=== PATIENT | male | born 1945 | race Caucasian/White ===

== ENCOUNTER 2017-08-24 21:39 | Emergency (ER) | payer MEDICARE ==
[2017-08-24] MEDS ORDERED: Zofran 4 MG/2 ML VIAL IV ONE (21:58)
[2017-08-24] MEDS ORDERED: MORPHINE SULFATE 4 MG INJ IV ONE ×2 (21:58→23:55)
[2017-08-24] MEDS ORDERED: MORPHINE SULFATE 4 MG INJ ONE ×2 (22:07→23:57)
[2017-08-24] MEDS ORDERED: Zofran 4 MG/2 ML VIAL ONE (22:07)
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
[2017-08-24 22:11] LABS: Lactic Acid 2.7 (0.4-2.0)
[2017-08-24 22:13] LABS: BASOPHIL % 0.3 % (0.0-0.4); Basophil (Absolute #) 0.03 (0-0.4); Eosinophil % 3.8 % (0.00-5.0); Eosinophil (Absolute #) 0.33 (0-0.5); Granulocyte Absolute (ANC) 3.81 (1.4-6.9); Granulocytes % 43.8 % (36.0-66.0); Hematocrit 41.7 % (42-50); Hemoglobin 14.4 gm/dl (12.5-18.0); Lymphocyte (Absolute #) 3.17 (1.0-4.6); Lymphocytes % 36.4 % (24.0-44.0); Mean Cell Volume 97.4 fl (78-100); Mean Corpuscular Hemoglobin 33.6 pg (26-32); Mean Corpuscular Hgb Concent. 34.5 g/dl (32-36); Mean Platelet Volume 10.2 fl (6-9.5); Monocyte (Absolute #) 1.37 (0.0-1.3); Monocytes % 15.7 % (0.0-12.0); Platelet Count 189 K/mm3 (150-450); Red Blood Count 4.28 M/mm3 (4.1-5.6); Red Cell Distribution Width 12.8 % (11.5-14.0); White Blood Count 8.7 K/mm3 (4.0-10.5)
[2017-08-24 22:31] LABS: INR 1.01 (0.8-3.0)
[2017-08-24 22:33] LABS: PTT 26.5 SECONDS (24.1-36.1)
[2017-08-24 22:40] LABS: ALKALINE PHOSPHATASE 62 U/L (46-116); ANION GAP 16.6 MEQ/L (5-15); BLOOD UREA NITROGEN 25 mg/dL (9-20); CHLORIDE 101 mEq/L (98-107); CK-Creatinine Phosphokinase 167 U/L (39-308); Calcium 9.5 mg/dL (8.5-10.1); Carbon Dioxide 26.6 mEq/L (21-32); Creatinine 1 1.11 mg/dl (0.55-1.30); EST GLOMERULAR FILTRATION RATE > 60 ML/MIN; Glucose 140 MG/DL (70-110); Potassium 3.8 mEq/L (3.5-5.1); SGOT/AST 26 U/L (15-37); SGPT/ALT 40 U/L (12-78); SODIUM 140 mEq/L (136-145); Total Protein 7.6 gm/dL (6.4-8.2)
[2017-08-24] MEDS ORDERED: Sodium Chloride 0.9% 1000 ML 1,000 ML IV SCH (22:45)
[2017-08-24] MEDS ORDERED: Sodium Chloride 0.9% 1000 ML 1,000 ML ONE (22:48)
[2017-08-25] MEDS ORDERED: CITROMA 296 ML PO ONE (00:19)
[2017-08-25] MEDS ORDERED: CITROMA 296 ML ONE (00:43)
[2017-08-25 01:15] LABS: Lactic Acid 2.6 (0.4-2.0)
[2017-08-25] MEDS ORDERED: Sodium Chloride 0.9% 1000 ML 1,000 ML IV STA (01:40)
[2017-08-25 01:45] VITALS: BP 129/78; PULSE 61
[2017-08-25] MEDS ORDERED: Sodium Chloride 0.9% 1000 ML 1,000 ML ONE (01:46)
[2017-08-25 01:55] VITALS: O2SAT 97
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
== END 2017-08-25 03:00 | disposition home or self-care (01) ==
LOC: ED 21:39
DX: I70.1 Atherosclerosis of renal artery (principal); K59.00 Constipation, unspecified; R10.12 Left upper quadrant pain; R10.32 Left lower quadrant pain; R42 Dizziness and giddiness; R11.0 Nausea; Z79.899 Other long term (current) drug therapy
CPT/HCPCS: 36000; 36415; 74174; 80053; 82550; 83605; 84484; 85025; 85610; 85730; 93005; 93041; 96360; 96361; 96374; 96375; 99284; J2270; J2405; A9270-GY

== ENCOUNTER 2022-01-22 17:43 | Emergency (ER) | payer MEDICARE, OTHER ==
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
[2022-01-22 18:52] LABS: Absolute Neutrophil Ct (ANC) 3.44 x10^3/uL (1.4-6.9); Basophil (Absolute #) 0.03 x10^3/uL (0-0.4); Eosinophil (Absolute #) 0 x10^3/uL (0-0.5); Hematocrit 38.9 % (42-50); Hemoglobin 13.7 g/dL (12.5-18.0); Lymphocyte (Absolute #) 1.17 x10^3/uL (1.0-4.6); Lymphocytes % 21.7 % (24.0-44.0); Mean Cell Volume 95.8 fL (78-100); Mean Corpuscular Hemoglobin 33.7 pg (26-32); Mean Corpuscular Hgb Concent. 35.2 g/dL (32-36); Monocyte (Absolute #) 0.72 x10^3/uL (0.0-1.3); Monocytes % 13.4 % (0.0-12.0); Neutrophil % 63.7 % (36.0-66.0); Platelet Count 150 x10^3/uL (150-450); Red Blood Count 4.06 x10^6/uL (4.1-5.6); Red Cell Distribution Width 12.7 % (11.5-14.0); White Blood Count 5.4 x10^3/uL (4.0-10.5)
[2022-01-22 19:13] LABS: ALBUMIN 4.1 g/dL (3.5-5.0); ALKALINE PHOSPHATASE 92 U/L (38-126); ANION GAP 14.5 MEQ/L (5-15); BLOOD UREA NITROGEN 24 mg/dL (9-20); CHLORIDE 99 mmol/L (98-107); Calcium 9.5 mg/dL (8.4-10.2); Carbon Dioxide 23 mmol/L (22-30); Creatinine 1 1.04 mg/dL (0.66-1.25); EST GLOMERULAR FILTRATION RATE > 60.0 ML/MIN; Glucose 152 mg/dL (74-106); NT PRO BNP 68.8 pg/mL (0-900); SGOT/AST 39 U/L (17-59); SGPT/ALT 46 U/L (0-50); SODIUM 132 mmol/L (137-145); Total Protein 7.6 g/dL (6.3-8.2)
[2022-01-22] MEDS ORDERED: Sodium Chloride 0.9% 500 ML 500 ML IV ONE ×2 (19:36)
[2022-01-22 20:08] VITALS: BP 128/76
[2022-01-22 21:38] VITALS: PULSE 58; O2SAT 95
--- NOTE | 2022-01-23 11:45 | XRAY ---
Exam: CT of the chest with IV contrast per PE protocol from 01/22/2022. CTDI: 23.68 mGy Comparison: [None.] Indication: 76-year-old male with elevated d-dimer of 0.94, and weakness/shortness of breath. Technique: Post-IV contrast axial images were obtained through the chest during automated injection of 100 cc of Isovue-370 contrast material, per PE protocol. Reconstructed coronal and sagittal images were created and reviewed. Findings: Main pulmonary artery trunk, right and left main pulmonary arteries, and lobar and segmental pulmonary arteries enhance well and reveal no filling defects to suggest clot/emboli. Some atherosclerotic vascular calcification is seen within the aortic arch and descending thoracic aorta. No thoracic aortic aneurysm or dissection is seen. The heart size is normal without pericardial effusion. There appears to be moderate coronary artery vascular calcification. I see no abnormal mediastinal mass or lymphadenopathy. The peripheral lungs reveal a few scattered bilateral calcified granulomas. No air space infiltrates or significant interstitial lung changes are seen. No pneumothorax or pleural effusion is seen. No abnormal soft tissue lung nodularity is evident. There is a suggestion of mild fatty infiltration of the liver. The adrenal glands appear unremarkable. The remainder of the upper abdomen reveals no significant abnormality. The skeleton reveals advanced degenerative changes throughout the visualized spine. There is mild retrolisthesis of L1 with respect to L2 which is probably due to a combination of moderate degenerative disc disease at L1-L2 and posterior facet joint arthropathy. Impression: 1. No evidence of pulmonary embolus is seen. Nor do I see thoracic aortic dissection. 2. Fairly extensive coronary artery vascular calcification is seen. 3. No active lung disease is seen. 4. Mild old healed granulomatous disease, advanced degenerative changes within the visualized thoracolumbar spine, and probable mild hepatic steatosis are seen.
== END 2022-01-22 21:56 | disposition home or self-care (01) ==
LOC: ED 17:43
DX: R53.1 Weakness (principal); I10 Essential (primary) hypertension; E78.5 Hyperlipidemia, unspecified; E11.9 Type 2 diabetes mellitus without complications; Z79.84 Long term (current) use of oral hypoglycemic drugs; Z79.899 Other long term (current) drug therapy
CPT/HCPCS: 36000; 36415; 71260; 80053; 83880; 84436; 84443; 84484; 85025; 85379; 93005; 93041; 94760; 96360; 99284

== ENCOUNTER 2022-11-27 07:49 | Emergency (ER) | payer OTHER ==
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
[2022-11-27] MEDS ORDERED: BABY ASPIRIN 81 MG CHEW PO ONE (07:56)
[2022-11-27 08:26] LABS: Absolute Neutrophil Ct (ANC) 8.24 x10^3/uL (1.4-6.9); BASOPHIL % 0.6 % (0.0-0.4); Basophil (Absolute #) 0.07 x10^3/uL (0-0.4); Eosinophil % 0.1 % (0.00-5.0); Eosinophil (Absolute #) 0.01 x10^3/uL (0-0.5); Hematocrit 42.7 % (42-50); Hemoglobin 14.2 g/dL (12.5-18.0); IMMATURE GRAN # 0.05 x10^3u/L (0.00-0.03); IMMATURE GRAN % 0.4 % (0.00-0.4); Lymphocyte (Absolute #) 1.48 x10^3/uL (1.0-4.6); Mean Cell Volume 99.1 fL (78-100); Mean Corpuscular Hemoglobin 32.9 pg (26-32); Mean Corpuscular Hgb Concent. 33.3 g/dL (32-36); Mean Platelet Volume 10.2 fL (7.5-11.0); Monocyte (Absolute #) 1.54 x10^3/uL (0.0-1.3); Monocytes % 13.5 % (0.0-12.0); Neutrophil % 72.4 % (36.0-66.0); Platelet Count 191 x10^3/uL (150-450); Red Blood Count 4.31 x10^6/uL (4.1-5.6); Red Cell Distribution Width 13.2 % (11.5-14.0); White Blood Count 11.4 x10^3/uL (4.0-10.5)
--- NOTE | 2022-11-27 08:31 | XRAY ---
Indication: Chest pain. Comparison: None Portable apical lordotic slightly underinflated and clear with a few incidental tiny calcified granulomas. Heart not enlarged. Bony thorax intact with osteopenia and mild degenerative changes. Impression: Nonacute chest with chronic features.
[2022-11-27 08:58] LABS: ALBUMIN 4.5 g/dL (3.5-5.0); ALKALINE PHOSPHATASE 98 U/L (38-126); ANION GAP 18.9 MEQ/L (5-15); BLOOD UREA NITROGEN 30 mg/dL (9-20); CHLORIDE 101 mmol/L (98-107); Calcium 9.6 mg/dL (8.4-10.2); Carbon Dioxide 22 mmol/L (22-30); Creatinine 1 1.09 mg/dL (0.66-1.25); EST GLOMERULAR FILTRATION RATE > 60.0 ML/MIN; Glucose 211 mg/dL (74-106); Potassium 3.9 mmol/L (3.5-5.1); SGOT/AST 22 U/L (17-59); SGPT/ALT 19 U/L (0-50); SODIUM 138 mmol/L (137-145); Total Protein 8.5 g/dL (6.3-8.2)
[2022-11-27] MEDS ORDERED: Sodium Chloride 0.9% 500 ML 500 ML IV ONE ×2 (09:28→09:37)
[2022-11-27 09:52] LABS: Slide Review 1 YES
[2022-11-27 10:06] VITALS: BP 145/84; PULSE 63; O2SAT 95
--- NOTE | 2022-11-27 10:15 | XRAY ---
Indication: Left chest pain. Elevated d-dimer. Multiple contiguous axial images obtained through the chest using 80 cc Isovue 370 contrast and PE protocol. Comparison: January 22, 2022 Good opacification of the pulmonary arteries to include the lobar and segmental branches. No pulmonary embolus. Heart not enlarged again with scattered coronary calcifications. Aorta remains mildly arteriosclerotic without aneurysm/dissection. No pathologic mediastinal/hilar lymphadenopathy. Lungs demonstrates minimal bilateral dependent atelectasis left lower lobe demonstrates stable tiny calcified and noncalcified granulomas. No suspicious pulmonary mass/nodule, infiltrate, effusion, or pneumothorax. Bony thorax intact again with mild/moderate degenerative changes throughout the spine. Limited upper abdomen including adrenal glands are unremarkable. Impression: Continued negative pulmonary embolus. Again chronic findings including arteriosclerotic disease, multilevel degenerative spondylosis, and old granulomatous disease. No new/acute abnormalities.
== END 2022-11-27 10:58 | disposition home or self-care (01) ==
LOC: ED 07:49
DX: R07.81 Pleurodynia (principal); I10 Essential (primary) hypertension; E11.9 Type 2 diabetes mellitus without complications; Z79.84 Long term (current) use of oral hypoglycemic drugs; Z79.52 Long term (current) use of systemic steroids; Z79.899 Other long term (current) drug therapy; Z28.310 Unvaccinated for COVID-19
CPT/HCPCS: 36415; 71045; 71260; 80053; 83880; 84484; 85025; 85379; 93005; 93041; 94760; 99284; A9270-GY

== ENCOUNTER 2023-04-24 13:09 | Emergency (ER) | payer OTHER ==
[2023-04-24] MEDS ORDERED: Sodium Chloride 0.9% 1000 ML 1,000 ML IV STA ×2 (13:18→14:55)
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
[2023-04-24] MEDS ORDERED: Sodium Chloride 0.9% 1000 ML 1,000 ML ONE ×2 (13:28→15:05)
[2023-04-24 13:29] VITALS: TEMP 97.8
[2023-04-24 13:58] LABS: Absolute Neutrophil Ct (ANC) 19.53 x10^3/uL (1.4-6.9); BASOPHIL % 0.3 % (0.0-0.4); Basophil (Absolute #) 0.06 x10^3/uL (0-0.4); Eosinophil % 0.6 % (0.00-5.0); Eosinophil (Absolute #) 0.13 x10^3/uL (0-0.5); Hematocrit 41.2 % (42-50); Hemoglobin 13.6 g/dL (12.5-18.0); IMMATURE GRAN # 0.19 x10^3u/L (0.00-0.03); IMMATURE GRAN % 0.9 % (0.00-0.4); Lymphocyte (Absolute #) 0.69 x10^3/uL (1.0-4.6); Lymphocytes % 3.2 % (24.0-44.0); Mean Cell Volume 98.1 fL (78-100); Mean Corpuscular Hemoglobin 32.4 pg (26-32); Mean Platelet Volume 9.9 fL (7.5-11.0); Monocyte (Absolute #) 1.25 x10^3/uL (0.0-1.3); Monocytes % 5.7 % (0.0-12.0); Neutrophil % 89.3 % (36.0-66.0); Platelet Count 245 x10^3/uL (150-450); Red Cell Distribution Width 13.3 % (11.5-14.0); White Blood Count 21.9 x10^3/uL (4.0-10.5)
[2023-04-24 14:09] LABS: BILIRUBIN,TOTAL 0.3 mg/dL (0.2-1.3); Calcium 9.3 mg/dL (8.4-10.2); Creatinine 1 1.43 mg/dL (0.66-1.25); EST GLOMERULAR FILTRATION RATE 51.1 ML/MIN; Potassium 4.4 mmol/L (3.5-5.1)
[2023-04-24 14:10] LABS: ADD URINE CULTURE? NO (NO); Appearance Clear (Clear); Bacteria None Seen /HPF (None Seen); Bilirubin Negative (Negative); Blood Negative (Negative); Epithelial Cells None Seen /HPF (None Seen); Glucose, Urine >=1000 mg/dL (Negative); Hyaline Casts NONE SEEN /LPF (0-2); Ketones Negative (Negative); Leukocyte Esterase Negative (Negative); Nitrite Negative (Negative); Ph 5.5 (4.6-8.0); Protein,Urine Dip Negative (Negative); RBC 0-2 /HPF (0-5); Specific Gravity >=1.030 (1.005-1.030); Urobilinogen 0.2 mg/dL (0.2); WBC 0-2 /HPF (0-5)
[2023-04-24 14:33] LABS: T4 (Thyroxine) 4.69 ug/dL (5.53-10.96)
[2023-04-24] MEDS ORDERED: Levofloxacin 500MG/100ML D5W 500 MG/100 ML BAG IV STA (14:35)
[2023-04-24] MEDS ORDERED: solu-MEDROL 125 MG, Sterile H2O 10 ml 2 ML IV ONE ×2 (14:36)
[2023-04-24] MEDS ORDERED: Levofloxacin 500MG/100ML D5W 500 MG/100 ML BAG IV ONE (14:41)
[2023-04-24] MEDS ORDERED: Sterile H2O 10 ml IJ ONE (14:41)
[2023-04-24] MEDS ORDERED: solu-MEDROL ONE (14:41)
--- NOTE | 2023-04-24 15:09 | XRAY ---
Indication: Leukocytosis. Comparison: November 27, 2022 Portable apical lordotic chest again demonstrates normal heart and lungs. Bony thorax intact. No new/acute findings.
[2023-04-24] MEDS ORDERED: Hydromorphone 1 mg/ml Injection IV ONE (16:09)
[2023-04-24] MEDS ORDERED: Zofran 4 MG/2 ML VIAL IV ONE (16:09)
[2023-04-24] MEDS ORDERED: NORCO 5/325 MG PO ONE (16:10)
[2023-04-24] MEDS ORDERED: Zofran 4 MG/2 ML VIAL ONE (16:13)
[2023-04-24] MEDS ORDERED: Hydromorphone 1 mg/ml Injection ONE (16:14)
[2023-04-24] MEDS ORDERED: NORCO 5/325 MG ONE (16:14)
[2023-04-24 16:37] VITALS: BP 99/73; PULSE 55; RESP 17; O2SAT 90
== END 2023-04-24 16:42 | disposition home or self-care (01) ==
LOC: ED 13:09
DX: D72.829 Elevated white blood cell count, unspecified (principal); M79.18 Myalgia, other site; R53.1 Weakness; I10 Essential (primary) hypertension; E11.9 Type 2 diabetes mellitus without complications; Z79.84 Long term (current) use of oral hypoglycemic drugs; Z79.899 Other long term (current) drug therapy; Z28.310 Unvaccinated for COVID-19
CPT/HCPCS: 36000; 36415; 71045; 80053; 81001; 83605; 83880; 84436; 84443; 84484; 85025; 85652; 86308; 87040; 93005; 93041; 94760; 96360; 96365; 96374; 96375; 99285; J1170; J1956; J2405; J2930; A9270-GY

== ENCOUNTER 2023-04-25 08:10 | Emergency (ER) | payer OTHER ==
[2023-04-25 08:19] VITALS: TEMP 96.8
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
[2023-04-25 09:02] LABS: Absolute Neutrophil Ct (ANC) 21.63 x10^3/uL (1.4-6.9); BASOPHIL % 0.1 % (0.0-0.4); Basophil (Absolute #) 0.02 x10^3/uL (0-0.4); Eosinophil (Absolute #) 0 x10^3/uL (0-0.5); Hematocrit 39.1 % (42-50); Hemoglobin 12.9 g/dL (12.5-18.0); IMMATURE GRAN # 0.29 x10^3u/L (0.00-0.03); IMMATURE GRAN % 1.2 % (0.00-0.4); Lymphocyte (Absolute #) 0.65 x10^3/uL (1.0-4.6); Lymphocytes % 2.8 % (24.0-44.0); Mean Cell Volume 98.7 fL (78-100); Mean Corpuscular Hemoglobin 32.6 pg (26-32); Mean Platelet Volume 9.8 fL (7.5-11.0); Monocyte (Absolute #) 0.69 x10^3/uL (0.0-1.3); Neutrophil % 92.9 % (36.0-66.0); Platelet Count 239 x10^3/uL (150-450); Red Blood Count 3.96 x10^6/uL (4.1-5.6); Red Cell Distribution Width 13.3 % (11.5-14.0); White Blood Count 23.3 x10^3/uL (4.0-10.5)
[2023-04-25 09:13] LABS: ALBUMIN 3.8 g/dL (3.5-5.0); ANION GAP 17.9 MEQ/L (5-15); BILIRUBIN,TOTAL 0.2 mg/dL (0.2-1.3); Calcium 9.4 mg/dL (8.4-10.2); Creatinine 1 1.44 mg/dL (0.66-1.25); EST GLOMERULAR FILTRATION RATE 50.7 ML/MIN; Potassium 4.1 mmol/L (3.5-5.1); Total Protein 6.9 g/dL (6.3-8.2)
[2023-04-25 09:33] VITALS: RESP 18
--- NOTE | 2023-04-25 09:38 | XRAY ---
Indication: Cough, lethargy, and pain. Multiple contiguous axial images obtained through the chest without contrast. Comparison: November 27, 2022 Lungs again demonstrates minimal dependent atelectasis and small left posterior gutter calcified granuloma. No pulmonary mass/nodule, infiltrate, or effusion. Heart not enlarged again with coronary calcifications. Aorta again mildly arteriosclerotic without aneurysm. No pathologic mediastinal lymphadenopathy. Bony thorax intact again with osteopenia and degenerative changes throughout the spine. CT abdomen/pelvis report separately. Impression: Continued nonacute CT chest without contrast exam again with chronic features.
--- NOTE | 2023-04-25 09:40 | XRAY ---
Indication: Cough, lethargy, and pain. Multiple contiguous axial images obtained through the abdomen and pelvis without contrast. Comparison: June 13, 2014 CT chest reported separately. Stomach is now moderately fluid distended. Noncontrasted stomach and bowel loops appear nonobstructed with normal appendix. There is now mild diffuse scattered colonic fecal debris. Gallbladder contracted without gallstones. No free fluid/air. Remaining liver, gallbladder, pancreas, spleen, adrenal glands, kidneys, ureters, and bladder are unremarkable for noncontrast exam. There remains mild scattered aortoiliac calcifications with mildly enlarging 3.5 x 4.1 cm distal AAA. Osseous structures intact again with osteopenia. Progressive worsening mild/moderate multilevel thoracolumbar degenerative spondylosis with stable bilateral L5 spondylolysis and grade 2 listhesis. Impression: 1. New mild diffuse fecal stasis. 2. Again scattered arteriosclerotic disease with enlarging distal AAA. 3. Again osteopenia, multilevel degenerative spondylosis, and L5 spondylolysis with grade [address] abdomen/pelvis without contrast exam is negative.
[2023-04-25 09:42] LABS: Slide Review 1 YES
[2023-04-25 12:15] VITALS: O2SAT 96
[2023-04-25 14:30] VITALS: BP 114/58; PULSE 57
== END 2023-04-25 14:48 | disposition short-term general hospital (02) ==
LOC: ED 08:10
DX: N17.9 Acute kidney failure, unspecified (principal); D72.829 Elevated white blood cell count, unspecified; R53.83 Other fatigue; M79.18 Myalgia, other site; R05.1 Acute cough; E11.9 Type 2 diabetes mellitus without complications; I10 Essential (primary) hypertension; Z79.84 Long term (current) use of oral hypoglycemic drugs; Z79.899 Other long term (current) drug therapy; Z28.310 Unvaccinated for COVID-19
CPT/HCPCS: 36000; 36415; 71250; 74176; 80053; 83605; 84484; 85025; 85652; 99285

== ENCOUNTER 2023-12-05 15:39 | Emergency (ER) | payer OTHER ==
[2023-12-05 15:54] VITALS: TEMP 97.8
[2023-12-05 16:48] LABS: Absolute Neutrophil Ct (ANC) 6.16 x10^3/uL (1.78-5.38); BASOPHIL % 0.8 % (0.2-1.2); Basophil (Absolute #) 0.07 x10^3/uL (0.01-0.08); Eosinophil (Absolute #) 0 x10^3/uL (0.04-0.54); Hemoglobin 13.8 g/dL (13.7-17.5); IMMATURE GRAN # 0.08 x10^3u/L (0.001-0.031); IMMATURE GRAN % 0.9 % (0.001-0.429); Lymphocyte (Absolute #) 1.45 x10^3/uL (1.32-3.57); Lymphocytes % 16.5 % (21.8-53.1); Mean Cell Volume 97.6 fL (79.0-92.2); Mean Corpuscular Hemoglobin 33.7 pg (25.7-32.2); Mean Corpuscular Hgb Concent. 34.5 g/dL (32.3-36.5); Mean Platelet Volume 9.8 fL (9.4-12.4); Monocyte (Absolute #) 1.02 x10^3/uL (0.30-0.82); Monocytes % 11.6 % (5.3-12.2); Neutrophil % 70.2 % (34.0-67.9); Platelet Count 224 x10^3/uL (163-337); Red Cell Distribution Width 13.1 % (11.6-14.4); White Blood Count 8.8 x10^3/uL (4.23-9.07)
[2023-12-05] MEDS ORDERED: Sodium Chloride 0.9% 1000 ML 1,000 ML ONE (16:50)
[2023-12-05] MEDS: Sodium Chloride 0.9% 1000 ML 1,000 ML IV STA (16:52)
[2023-12-05 17:05] LABS: ALBUMIN 4.3 g/dL (3.5-5.0); ANION GAP 15.4 MEQ/L (5-15); BILIRUBIN,TOTAL 0.4 mg/dL (0.2-1.3); Calcium 9.6 mg/dL (8.4-10.2); Creatinine 1 1.41 mg/dL (0.66-1.25); EST GLOMERULAR FILTRATION RATE 51.7 ML/MIN; Potassium 3.9 mmol/L (3.5-5.1); Total Protein 7.2 g/dL (6.3-8.2)
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
[2023-12-05 17:46] LABS: Appearance Clear (Clear); Bacteria None Seen /HPF (None Seen); Bilirubin Negative (Negative); Blood Negative (Negative); Epithelial Cells None Seen /HPF (None Seen); Glucose, Urine >=1000 mg/dL (Negative); Hyaline Casts NONE SEEN /LPF (0-2); Ketones Trace (Negative); Leukocyte Esterase Negative (Negative); Nitrite Negative (Negative); Ph 5.5 (4.6-8.0); Protein,Urine Dip Negative (Negative); RBC 0-2 /HPF (0-5); Specific Gravity >=1.030 (1.005-1.030); Urobilinogen 0.2 mg/dL (0.2); WBC 0-2 /HPF (0-5)
[2023-12-05 17:54] LABS: ADD URINE CULTURE? NO (NO)
[2023-12-05 19:15] VITALS: BP 115/65; PULSE 63; RESP 20
[2023-12-05 19:28] VITALS: O2SAT 94
--- NOTE | 2023-12-06 08:22 | XRAY ---
Indication: Pain and diarrhea. AAA. Multiple contiguous axial images obtained through the abdomen and pelvis without contrast. Comparison: April 25, 2023 Lung bases demonstrates minimal dependent atelectasis. Stable incidental left posterior gutter calcified granuloma. No infiltrate or effusion. Heart not enlarged again with scattered coronary calcifications. Stomach distended with food/fluid. Noncontrasted stomach and bowel loops appear nonobstructed again with normal appendix. Contracted gallbladder without gallstones. No free fluid/air. Remaining liver, gallbladder, pancreas, spleen, adrenal glands, kidneys, ureters, and bladder are unremarkable for noncontrast exam. Grossly stable mild scattered aortoiliac calcifications and 3.5 x 4.1 cm distal AAA. Osseous structures intact again with osteopenia, mild/moderate multilevel thoracolumbar degenerative spondylosis, and bilateral L5 spondylolysis with grade 2 listhesis. Again incidental left gluteal metallic shrapnel producing beam artifact. Impression: Again chronic findings including arteriosclerotic disease with distal AAA, chronic bony findings, and old granulomatous disease. No new/acute findings on this noncontrast exam.
== END 2023-12-05 19:37 | disposition home or self-care (01) ==
LOC: ED 15:39
DX: R19.7 Diarrhea, unspecified (principal); R10.30 Lower abdominal pain, unspecified; I71.40 Abdominal aortic aneurysm, without rupture, unspecified; I10 Essential (primary) hypertension; E11.9 Type 2 diabetes mellitus without complications; Z79.84 Long term (current) use of oral hypoglycemic drugs; Z79.899 Other long term (current) drug therapy
CPT/HCPCS: 36000; 36415; 74176; 80053; 81001; 83605; 83690; 85025; 99284